=== PATIENT | female | born 1985 | race Hispanic/Latino ===

== ENCOUNTER 2023-12-02 08:13 | Emergency (ER) | payer OTHER ==
[2023-12-02] MEDS ORDERED: Methocarbamol 500 MG TAB ONE (08:26)
[2023-12-02] MEDS ORDERED: Ketorolac Tromethamine 30 MG (1 mL) VIAL ONE (08:27)
== END 2023-12-02 09:12 | disposition home or self-care (01) ==
LOC: MADERS 08:13
DX: S16.1XXA Strain of muscle, fascia and tendon at neck level, initial encounter (principal); V43.52XA Car driver injured in collision with other type car in traffic accident, initial encounter; W22.11XA Striking against or struck by driver side automobile airbag, initial encounter; Y93.89 Activity, other specified; Y92.411 Interstate highway as the place of occurrence of the external cause; Z55.6 Problems related to health literacy
CPT/HCPCS: 70450; 72125; J1885